=== PATIENT | female | born 1990 | race Caucasian/White ===

== ENCOUNTER 2017-01-01 08:30 | Observation (INO) | payer MEDICAID ==
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
== END 2017-01-01 11:03 | disposition home or self-care (01) ==
LOC: FLD 08:30 → EDBD 08:30
PROVIDERS: ADMIT Obstetrics & Gynecology; ATTEND Obstetrics & Gynecology
DX: O26.892 Other specified pregnancy related conditions, second trimester (principal); Z3A.25 25 weeks gestation of pregnancy